=== PATIENT | male | born 1945 | race Caucasian/White ===

== ENCOUNTER 2023-03-25 19:51 | Emergency (ER) | payer MEDICARE, OTHER ==
[~2023-03-25] VITALS: Ht 167.6 cm; Wt 79.4 kg
[2023-03-25 20:12] LABS: BASOPHILS 1.6 % (0-2); EOSINOPHILS 1.3 % (0-6); HEMATOCRIT 31.3 % (35.0-50.0); HEMOGLOBIN 10.2 g/dL (12.0-18.0); LYMPHOCYTES 34.1 % (24-44); MCH 30.1 (27-36); MCHC 32.5 g/dl (30-36); MCV 92.7 fl (81-99); MONOCYTES 12.9 % (0-12); NEUTROPHILS 50.1 % (39-80); PLATELET COUNT 242 K/uL (140-440); RBC 3.38 M/ul (4.3-5.7); RDW 17.9 (10.5-15.0)
[2023-03-25] MEDS ORDERED: LIPITOR80 MG PO (20:18)
[2023-03-25] MEDS ORDERED: COZAAR50 MG PO (20:18)
[2023-03-25] MEDS ORDERED: METOPROLOL TART25 MG PO (20:19)
[2023-03-25] MEDS ORDERED: ELIQUIS5 MG PO (20:19)
[2023-03-25] MEDS ORDERED: GUAIFENESIN400 MG PO (20:20)
[2023-03-25] MEDS ORDERED: VITAMIN C250 MG PO (20:21)
[2023-03-25] MEDS ORDERED: POMALYST2 MG PO (20:23)
[2023-03-25] MEDS ORDERED: ACYCLOVIR200 MG PO (20:24)
[2023-03-25] MEDS ORDERED: INSULIN GL100 UNIT/4 SUB-Q (20:24)
[2023-03-25] MEDS ORDERED: HUMALOG100 UNIT/2 SUB-Q (20:25)
[2023-03-25] MEDS ORDERED: VITAMIN B-1250 MCG PO (20:26)
[2023-03-25] MEDS ORDERED: LUTEIN40 MG PO (20:27)
[2023-03-25] MEDS ORDERED: ONDANSETRON ODT8 MG SL (20:27)
[2023-03-25] MEDS ORDERED: COLACE100 MG PO (20:28)
[2023-03-25] MEDS ORDERED: CALCIUM +D & M1 EACH PO (20:29)
[2023-03-25] MEDS ORDERED: ADULT ASPIRIN R81 MG PO (20:30)
[2023-03-25 20:35] LABS: ALBUMIN 2.8 g/dL (3.4-5.0); ALBUMIN/GLOBULIN RATIO 0.76 (1.1-2.4); ANION GAP 16.3 (7-21); BILIRUBIN, TOTAL 0.2 ng/dL (0.2-1.0); BUN/CREATININE RATIO 10.28 (6.0-28.6); CALCIUM 7.9 mg/dL (8.5-10.1); CREATININE, SERUM 2.43 mg/dL (0.70-1.30); MAGNESIUM 2.3 mg/dL (1.8-2.4); POTASSIUM 4.3 mmol/L (3.5-5.1); PROTEIN, TOTAL 6.5 g/dL (6.4-8.2); TSH, 3RD GENERATION 2.052 uIU/mL (0.358-3.740)
[2023-03-25 20:36] LABS: INR 1.41 (0.80-1.30); PROTIME 16.6 Sec (11.2-14.2)
[2023-03-25 20:57] LABS: INFLUENZA B NAA NEGATIVE (NEGATIVE); RESPIRATORY SYNCYTIAL VIR NAA NEGATIVE (NEGATIVE)
[2023-03-25 21:42] LABS: BILIRUBIN, URINE NEGATIVE (negative); BLOOD/HGB, URINE TRACE-I (Negative); KETONE, URINE NEGATIVE (Negative); LEUK ESTERASE, URINE NEGATIVE (negative); NITRITE, URINE NEGATIVE (negative)
[2023-03-25 21:46] LABS: AMPHETAMINES, UR NEGATIVE (NEGATIVE); BARBITURATES, UR NEGATIVE (NEGATIVE); BENZODIAZEPINES, UR NEGATIVE (NEGATIVE); BUPRENORPHINE,UR NEGATIVE (NEGATIVE); COCAINE, UR NEGATIVE (NEGATIVE); MARIJUANA (THC), UR NEGATIVE (NEGATIVE); MDMA, UR NEGATIVE (NEGATIVE); METHADONE, UR NEGATIVE (NEGATIVE); METHAMPHETAMINE, UR NEGATIVE (NEGATIVE); OPIATES, UR NEGATIVE (NEGATIVE); OXYCODONE, UR NEGATIVE (NEGATIVE); PHENCYCLIDINE, UR NEGATIVE (NEGATIVE); TRICYCLIC ANTIDEPRESSANT, UR NEGATIVE (NEGATIVE)
[2023-03-25 21:49] LABS: BACTERIA, URINE NONE SEEN /hpf (negative); CASTS, URINE NONE SEEN \\lpf; COLLECTION TYPE, URINE CLEAN CATCH; CRYSTALS, URINE NONE SEEN (0-1+); EPITHELIAL CELLS, URINE SQUAMOUS 1+ /lpf (0-1+); REFLEX CULTURE, URINE No (No)
[2023-03-25 22:30] VITALS: BP 138/78
--- NOTE | 2023-03-26 22:24 | EKG ---
[facility] [address] [place], [place] [address] Signed Sinus rhythm with 1st degree AV block Otherwise normal ECG No previous ECGs available Confirmed by BARTOLOME NULL MD ([id number]) on 03/26/2023 10:24:18 PM Electronically Signed By: BARTOLOME NULL 03/26/232223 PATIENT NAME: HELENE ULLOA Electrocardiogram DATE OF : 43 PHYSICIAN: BARTOLOME NULL REPORT #: [id number] REPORT IS CONFIDENTIAL AND NOT TO BE RELEASED WITHOUT AUTHORIZATION
== END 2023-03-25 22:31 | disposition short-term general hospital (02) ==
LOC: ED 19:51
PROVIDERS: Internal Medicine
DX: I44.1 Atrioventricular block, second degree (principal); E11.9 Type 2 diabetes mellitus without complications; I25.2 Old myocardial infarction; Z88.8 Allergy status to other drugs, medicaments and biological substances; Z79.899 Other long term (current) drug therapy; Z79.01 Long term (current) use of anticoagulants; Z79.4 Long term (current) use of insulin; Z79.82 Long term (current) use of aspirin
CPT/HCPCS: 36415; 71045; 80053; 81001; 82553; 83735; 84443; 84484; 85025; 85379; 85610; 87502; 93005; 93010; 96361; 96374; 99285-25; C9803; J0461; J7121; U0002